=== PATIENT | female | born 1985 | race Caucasian/White ===

== ENCOUNTER 2017-04-28 06:00 | Inpatient (IN) ==
[2017-04-28] MEDS ORDERED: miSOPROStol 25 MCG TABLET PO PRN (06:01)
[2017-04-28] MEDS ORDERED: Famotidine 20 MG/2 ML VIAL IVP PRN (06:01)
[2017-04-28] MEDS ORDERED: Naloxone 0.4 MG/ML INJ IVP PRN (06:01)
[2017-04-28] MEDS ORDERED: Metoclopramide 10 MG/2 ML VIAL IVP PRN (06:01)
[2017-04-28] MEDS ORDERED: *HR* Nalbuphine 20 MG/ML AMPUL IVP PRN (06:04)
[2017-04-28 06:27] LABS: Basophils % 0.5 %; Eosinophils # 0.1 K/mcL (0.0-0.6); Eosinophils % 0.6 %; Hematocrit 30.8 % (35.3-44.9); Hemoglobin 9.9 g/dL (11.5-15.4); Immature Granulocytes % 1.5 % (0-4); Lymphocytes % 24.8 %; Mean Corpuscular HGB Conc 32.1 g/dL (31.6-35.5); Mean Corpuscular Hemoglobin 29.8 pg (28.0-33.3); Mean Corpuscular Volume 92.8 fL (83.0-100.0); Mean Platelet Volume 10.5 fL (9.4-12.4); Monocytes # 0.9 K/mcL (0.0-1.3); Monocytes % 11.2 %; Platelet Count 187 K/mcL (140-400); Red Blood Count 3.32 M/mcL (3.82-4.97); Red Cell Distribution Width 13.6 % (11.5-14.5); Segmented Neutrophils % 61.4 %
--- NOTE | 2017-04-28 08:46 | OB Labor Progress Note ---
Date of Encounter: 04/28/17 Time of Encounter: 08:44 Labor Progress Note - Subjective Subjective: Pt getting more uncomfortable s/p cytotec. No other c/o. - Cervix Cervix: 2-3/80/-2 - Heart Tones Heart Tones: RNST - Jennings Jennings: Irritability - Plan Plan: Expect
[2017-04-28] MEDS: Ringers Solution, Lactated 1,000 ML IVC SCH ×2 (08:47→13:52)
--- NOTE | 2017-04-28 10:10 | Anesthesia Evaluation PreOp ---
Date of Encounter: 04/28/17 Time of Encounter: 09:55 - Past History Planned Operation: labor Cardiac History: Other (murmur as a teenager none heard today) Pulmonary History: Denies Any Significant HX Other Medical History: GERD, Other (gestational diabetes) Anesthesia History: Past Anesthesia, Problems (patient had wet tap with last epidural, vag delivery x2) Test: Positive Alcohol Use: none Drug use: none Medications and Allergies Ferrous Sulfate [Iron] 325 mg PO DAILY 04/28/17 [History] Vit/Iron Fumarate/FA [ Tablet] 1 each PO DAILY 04/28/17 [ History] Allergies No Known Allergies Allergy (Verified 04/28/17 06:20) - Meds/Allergy Pre-op Review Medications Reviewed: Yes Allergies Reviewed: Yes Beta Blockers on Current Med List: No Anesthesia Results - Labs 04/28/17 06:14 Anesthesia Exam 3 Vital Signs Time 0955 BP 114/75 Pulse 96 Resp 16 O2 Sat Height: 71 inches Weight: 90 kg NPO (# of Hours): 6 hours solids Pain Scale: 2 Pain Scale Used: Numeric (1 - 10) - HEENT Pupil (Motor): Pupils equal Mallampati: III Teeth: Normal Oral Opening: Greater than 3 - SOLO MUSICIAN LOC: Oriented SOLO MUSICIAN Motor: Normal RUE, Normal LUE, Normal RLE, Normal LLE, Normal Face SOLO MUSICIAN Sensory: Normal: RUE, LUE, RLE, LLE, Face - Cardiac Rhythm: Regular Murmur: None JVD: No Carotid Bruit: No - Pulmonary Breath Sounds: bilateral Clear Respiratory Effort: Symmetrical Anesthesia Assess/Plan ASA Score: 2 Modified Helen Scale for Level of Consciousness: Cooperative, oriented, and tranquil Anesthetic Plan: Regional Monitoring Plan: Standard Monitors Recovery Plan: Other
--- NOTE | 2017-04-28 11:21 | OB/GYN History & Physical ---
Date of Encounter: 04/28/17 Time of Encounter: 11:15 Assessment and Plan (1) 39 weeks gestation of Current visit: Yes Status: Acute Admit for IOL. Epidural if desired. Induction as per Dr. Hutton. Anticipate vaginal delivery assisted by induction. (2) NST (non-stress test) reactive Current visit: Yes Status: Acute (3) Gestational diabetes Current visit: Yes Status: Acute Qualifiers: Gestational diabetes mellitus control: diet-controlled Trimester: third trimester Qualified Code(s): O24.410 - Gestational diabetes mellitus in , diet controlled History of Present Illness Chief complaint: Induction of Labor HPI: Ms. Blanton is a 31 year old female, , at 39w GA, presents for induction of labor with Dr. Hutton. Reports movement, mild contractions, no bleeding. complicated by diet controlled GDM. Labs: Negative: GBS, Syphilis, Hep B, HIV, C.trach, N.marco, HPV Non-immune: Rubella Immune: VZV Blood type: A positive Past Med Surg Social Fam HX - Past Medical History Medical history: no medical history Psychiatric history: no psych history - Past Surgical History Surgical History: no surgical history - Social History Smoking Status: Never smoker Smokeless Tobacco Status: No Alcohol use: none Drug use: none - Family History Mother Living Status: Still Living Hx Family Cardiac Disorders: Yes (HTN) Obstetrical History - Pregnancies : 3 Medications and Allergies Ferrous Sulfate [Iron] 325 mg PO DAILY 04/28/17 [History] Vit/Iron Fumarate/FA [ Tablet] 1 each PO DAILY 04/28/17 [ History] Allergies No Known Allergies Allergy (Verified 04/28/17 06:20) Review of System OB - Genitourinary Genitourinary: amenorrhea - Menstruation Menstruation: amenorrhea Exam - Vital Signs Vital signs: Initial Vital Signs Temp Pulse Resp BP 97.7 F 104 16 109/69 04/28/17 06:28 04/28/17 06:28 04/28/17 06:28 04/28/17 06:28 - Constitutional Constitutional: well developed, well nourished, no acute distress - HEENT HEENT: Normocephaly, Mucus Membranes Moist - Lungs Respiratory exam: CTAB - Cardiovascular Cardiovascular exam: +S1, +S2 - Vagina Vagina: Present: normal moisture - Cervix Dilation: 3 Effacement: 80 Station: -2 - Uterus Uterus exam: Present: enlarged Results Result Diagrams: 04/28/17 06:14 Abnormal lab results RBC 3.32 M/mcL (3.82-4.97) L 04/28/17 06:14 Hgb 9.9 g/dL (11.5-15.4) L 04/28/17 06:14 Hct 30.8 % (35.3-44.9) L 04/28/17 06:14 All other labs normal. - VTE Reasons for not Prescribing Prophylaxis: Treatment not Indicated - Low risk for VTE
[2017-04-28] MEDS ORDERED: Oxytocin 20 units/ LR 1000 mL 20 UNIT/1,000 ML BAG IVC SCH ×2 (14:15→23:40)
--- NOTE | 2017-04-28 16:39 | OB Labor Progress Note ---
Date of Encounter: 04/28/17 Time of Encounter: 16:36 Labor Progress Note - Subjective Subjective: Pt reporting increasing discomfort with contractions. - Cervix Cervix: 4/90/-1 - Heart Tones Heart Tones: Category I - Poynette Poynette: 1.5-3 - Interventions Interventions: IUPC placed - Plan Plan: Epidural when requested. Anticipate .
[2017-04-28] MEDS ORDERED: *HR* FentaNYL (PF) 100 MCG/2 ML VIAL EP ONE (16:44)
[2017-04-28] MEDS ORDERED: Bupivacaine-MPF 0.25% 10 ML VIAL EP ONE (16:44)
[2017-04-28] MEDS ORDERED: Epidural Premix (fent/bupiv) 110 ML EP SCH (16:45)
[2017-04-28] MEDS ORDERED: Bupivacaine-MPF 0.25% 10 ML VIAL ONE (16:46)
[2017-04-28] MEDS ORDERED: *HR* FentaNYL (PF) 100 MCG/2 ML VIAL ONE (16:46)
[2017-04-28] MEDS ORDERED: Epidural Premix (fent/bupiv) 110 ML EP ONE (16:47)
--- NOTE | 2017-04-28 17:35 | Anesthesia Procedures ---
Date of Encounter: 04/28/17 Time of Encounter: 16:55 Procedures: Anesthesia - Epidural/Spinal Patient ID/Chart reviewed: Yes Patient examined: Yes OB Eval: Gestational age: 39 weeks OB Eval: : 3 OB Eval: Hx Para: 2 OB Eval: Contractions: Non-stressed pattern Consent Obtained: Yes Supplemental Oxygen: None/Room Air Site Prep: Aseptic Technique, Sterile prep and drape, Povidone-Iodine 1% Patient position: upright Local Anesthetic: Lidocaine 1% Amount of Local Anesthetic used: 3 Touhy Needle Gauge: 18 Touhy Needle Depth (cm): 5 Catheter Depth at Skin (cm): 12 Test Dose (1.5% Lido + Epi): Volume given (mls): 3 Test Dose Result: Negative Loading Dose: 0.25% Marcaine (mls): 6 Loading Dose: Fentanyl (mcg): 100 Loading Dose: Other: 4 ml saline Loading Dose Administered: Thru Catheter Infusion Med: 0.125% Bupivacaine w/ 2 mcg/ml Fentanyl Infusion Rate (mls/hr): [address]: Tegaderm, Tape Interspace Used: L3-L4 Loss of Resistance (MARIA DOLORES): Yes (air) Blood: No CSF: No Paresthesia: No Procedure: 3 Vital Signs Time 1655 start 1708 test 1715 bolus 1721 pump started BP 130/84 130/89 111/76 110/73 Pulse 101 101 100 100 Resp 16 16 16 16 O2 Sat 99 99 99 99 heart tones 140 throughout
--- NOTE | 2017-04-28 23:17 | OB/GYN Procedure Note ---
Delivery - Delivery Date: 04/28/17 Provider: Shay Hutton Intrapartum events: none Delivery induction: AROM, oxytocin, misoprostol Delivery monitor: external FHT, internal FHT Anesthesia: epidural Estimated Blood Loss: 200 - Infant (s) A Delivery Date: 04/28/17 Delivery Time: 22:55 Presentation: vertex Position: WOODY Gender: Female Viability: Viable Weight Gram: 4.14 kg Shoulder Dystocia: not encountered Placenta: spontaneous Cord: 3 umbilical vessels - Repair Episiotomy: none Laceration Description: Perineal - 1st Degree - Complications Delivery complications: none - Disposition Mom disposition: stable in LDR disposition: stable in LDR - Comments Comments: Pt s/p of liveborn female without complications. Spontaneous delivery of normal placenta with 3 vc. 1st degree laceration repaired with 3-0 vicryl with 2 interrupted sutures. Pt tolerated well
[2017-04-28] MEDS ORDERED: Rho Immune Globulin 1,500 UNIT SYRINGE IM PRN (23:40)
[2017-04-28] MEDS ORDERED: Measles/Mumps/Rubella Vacc 0.5 ML VIAL SQ PRN (23:40)
[2017-04-29 00:30] LABS: Basophils % 0.1 %; Hematocrit 29.4 % (35.3-44.9); Hemoglobin 9.3 g/dL (11.5-15.4); Immature Granulocytes % 0.4 % (0-4); Immature Platelets 7.1 % (1.1-6.1); Lymphocytes # 1.6 K/mcL (0.6-4.6); Lymphocytes % 11.4 %; Mean Corpuscular HGB Conc 31.6 g/dL (31.6-35.5); Mean Corpuscular Hemoglobin 25.3 pg (28.0-33.3); Mean Platelet Volume 11.8 fL (9.4-12.4); Monocytes # 1.1 K/mcL (0.0-1.3); Monocytes % 7.9 %; Platelet Count 198 K/mcL (140-400); Red Blood Count 3.67 M/mcL (3.82-4.97); Red Cell Distribution Width 13.8 % (11.5-14.5); Segmented Neutrophils % 80.2 %
[2017-04-29 00:55] LABS: Mean Corpuscular Volume 80.1 fL (83.0-100.0); Neutrophils # 11.6 K/mcL (1.6-8.9)
[2017-04-29] MEDS: Acetaminophen 325 MG TABLET PO PRN ×2 (01:45→09:23)
[2017-04-29] MEDS: Prenatal Vit/FA 1 EACH TABLET PO SCH (09:23)
--- NOTE | 2017-04-29 10:29 | OB/GYN Progress Note ---
Date of Encounter: 04/29/17 Time of Encounter: 10:26 - Assessment and Plan (1) Vaginal delivery Current Visit: Yes Status: Acute Pt doing well meeting PPD 1 milestones, continue current management. Subjective - Subjective Patient reports: appetite normal, voiding normally, pain well controlled, ambulating normally : doing well, bottle feeding Objective - Latest Vital Signs Latest vital signs: Vital Signs Temp Pulse Resp BP Pulse Ox 04/29/17 09:02 98.0 F 90 17 102/70 97 04/29/17 03:17 98.1 F 90 16 98/66 97 04/29/17 02:22 98.4 F 84 16 103/76 97 04/29/17 01:36 98.3 F 95 18 105/77 98 Intake and Output 04/28/17 04/29/17 04/29/17 23:59 07:59 15:59 Intake Total 400 / 400 Output Total 1300 / 1300 800 / 800 Balance -1300 / -1300 -800 / -800 400 / 400 Intake: Oral 400 / 400 Output: Urine 800 / 800 Catheter 1300 / 1300 Other: Meal Breakfast Percent of Meal Consumed 100% - Exam Lungs: bilateral: normal Chest: Normal S1, Normal S2 Extremities: Present: normal Abdomen: Present: normal appearance, soft Uterus: Present: normal, firm Uterus Position: 1 Finger Below Umbilicus - Labs Labs: Laboratory Results - last 24 hr 04/28/17 23:35 WBC 14.4 H D RBC 3.67 L Hgb 9.3 L Hct 29.4 L MCV 80.1 L D MCH 25.3 L MCHC 31.6 RDW 13.8 Plt Count 198 MPV 11.8 Immature Gran % 0.4 Seg Neutrophils % 80.2 Lymphocytes % 11.4 Monocytes % 7.9 Eosinophils % 0.0 Basophils % 0.1 Neutrophils # 11.6 H Lymphocytes # 1.6 Monocytes # 1.1 Eosinophils # 0.0 Basophils # 0.0 Immature Plt Fraction 7.1 H
[2017-04-29] MEDS: Ibuprofen 600 MG TABLET PO PRN ×2 (15:53→21:22)
[2017-04-30 08:17] VITALS: BP 109/77
--- NOTE | 2017-04-30 08:44 | Discharge Summary ---
Date of Encounter: 04/30/17 Time of Encounter: 08:41 - Discharge Diagnosis (1) Vaginal delivery Priority: Primary Status: Acute - Discharge Medications Prescriptions: Ibuprofen [Motrin] 600 mg PO Q6HR PRN #24 tab PRN Reason: Pain Home Medications: Ferrous Sulfate [Iron] 325 mg PO DAILY 04/28/17 [History] Vit/Iron Fumarate/FA [ Tablet] 1 each PO DAILY 04/28/17 [ History] Ibuprofen [Motrin] 600 mg PO Q6HR PRN #24 tab 04/30/17 [Rx] Allergies/Adverse Reactions: Allergies No Known Allergies Allergy (Verified 04/28/17 06:20) Data Procedures and tests throughout hospitalization: Laboratory Tests 04/28/17 04/28/17 06:14 23:35 WBC 8.1 14.4 H D RBC 3.32 L 3.67 L Hgb 9.9 L 9.3 L Hct 30.8 L 29.4 L MCV 92.8 80.1 L D MCH 29.8 25.3 L MCHC 32.1 31.6 RDW 13.6 13.8 Plt Count 187 198 MPV 10.5 11.8 Immature Gran % 1.5 0.4 Seg Neutrophils % 61.4 80.2 Lymphocytes % 24.8 11.4 Monocytes % 11.2 7.9 Eosinophils % 0.6 0.0 Basophils % 0.5 0.1 Neutrophils # 5.0 11.6 H Lymphocytes # 2.0 1.6 Monocytes # 0.9 1.1 Eosinophils # 0.1 0.0 Basophils # 0.0 0.0 Immature Plt Fraction 7.1 H Date of admission: 04/28/17 06:00 Primary care physician: Jose Ramon Leigh Consults: 04/28/17 23:40 Consult to Fish Warden [CONS] Routine Comment: Vaginal delivery, consult needed Discharging clinician: Aleksandra Palafox Anticipated date of discharge: 04/30/17 - Patient Status Disposition: Home, Self-Care Condition: Good Functional capacity at discharge: independent ambulation Overall status at discharge: patient is back to baseline - Discharge Instructions Follow Up With: Jose Ramon Leigh DO [Primary Care Provider] - - Diet and Activity Diet: regular diet Hospital Course Reason for admission: induction of labor Delivery: Episiotomy: none Laceration: 1st degree (perineal) Other procedures: none complications: none Discharge diagnosis: IUP at term delivered baby: female Hospital course: - Delivery Date: 04/28/17 Provider: Shay Hutton Intrapartum events: none Delivery induction: AROM, oxytocin, misoprostol Delivery monitor: external FHT, internal FHT Anesthesia: epidural Estimated Blood Loss: 200 - Infant (s) Infant A Infant Delivery Date: 04/28/17 Delivery Time: 22:55 Presentation: vertex Position: WOODY Gender: Female Viability: Viable Weight Gram: 4.14 kg Shoulder Dystocia: not encountered Placenta: spontaneous Cord: 3 umbilical vessels - Repair Episiotomy: none Laceration Description: Perineal - 1st Degree - Complications Delivery complications: none - Disposition Mom disposition: stable in LDR [place] disposition: stable in LDR - Comments Comments: Pt s/p of liveborn female infant without complications. Spontaneous delivery of normal placenta with 3 vc. 1st degree laceration repaired with 3-0 vicryl with 2 interrupted sutures. Pt tolerated well Time Attestation: Total time spent providing and/or coordinating discharge services: Exam - Constitutional Vitals: Temp Pulse Resp BP Pulse Ox 97.5 F L 88 17 109/77 97 04/30/17 08:14 04/30/17 08:14 04/30/17 08:14 04/30/17 08:14 04/30/17 08:14 General appearance IM: A&O X 3, answers questions appropriately - Respiratory Respiratory exam: Present: CTAB - Cardiovascular Cardiovascular exam IM: Present: RRR, +S1, +S2 - GI/Abdominal GI/Abdominal exam IM: normal bowel sounds, soft - Uterus Position: 3 Fingers Below Umbilicus, Midline - Extremities Exam Extremities exam IM: Present: normal inspection, warm
[2017-04-30] MEDS: Prenatal Vit/FA 1 EACH TABLET PO SCH (10:09)
== END 2017-04-30 10:40 | disposition home or self-care (01) | DRG 775 ==
LOC: 1NENULAB 06:00 → 1NENUOBS 04-29 01:21
PROVIDERS: ADMIT Obstetrics & Gynecology; ATTEND Obstetrics & Gynecology